=== PATIENT | female | born 1985 | race Caucasian/White ===

== ENCOUNTER 2019-11-12 16:28 | Emergency (ER) | payer BC, SELFPAY ==
--- NOTE | ~2019-11-12 | XR_ITS ---
EXAMINATION: XR chest 1V portable DATE: 11/12/2019 18:39 INDICATION: Shortness of breath. COVID positive. TECHNIQUE: A single frontal view of the chest was obtained. COMPARISON: CT abdomen and pelvis 04/25/2008 FINDINGS: The chest demonstrates clear lungs without pneumonia, pleural effusion, or pneumothorax. Th e heart size is normal. IMPRESSION: 1. No acute cardiopulmonary disease. Reviewed, dictated and finalized at location A.
[2019-11-12 16:55] VITALS: BP 141/88; PULSE 89; RESP 11; TEMP 36.6; O2SAT 100
--- NOTE | 2019-11-12 17:29 | ECG_ITS ---
Measurements Intervals [place] Rate: 95 P: 6 ID: 140 QRS: 16 QRSD: 85 T: 28 QT: 327 QTc: 411 Interpretive Statements SINUS RHYTHM VOLTAGE CRITERIA FOR LVH BASELINE ARTIFACT- I, II, AVR, V1 BORDERLINE ECG Electronically Signed On 11-13-2019 7:03:34 CDT by Edwin Phillips D.O.
[2019-11-12 17:50] LABS: Basophils Percent Auto 0.2 % (0.2-1.2); Eosinophils Absolute Auto 0.1 K/mm3 (0-0.3); Eosinophils Percent Auto 2.5 % (0-4.4); Hematocrit 38.6 % (37.0-47.0); Hemoglobin 13.6 g/dL (12.0-15.0); Immature Granulocyte Absolute 0.02 K/mm3 (0.00-0.031); Immature Granulocyte Percent A 0.4 % (0-0.5); Lymphocytes Absolute Auto 1.49 K/mm3 (0.9-3.2); Lymphocytes Percent Auto 26.8 % (18.3-44.2); Mean Corpuscular HGB Conc 35.2 g/dl (32-36); Mean Corpuscular Hemoglobin 31.1 pg (26-34); Mean Corpuscular Volume 88.1 fl (80-100); Mean Platelet Volume 9.5 fl (7.4-10.4); Monocytes Absolute Auto 0.4 K/mm3 (0.1-0.6); Monocytes Percent Auto 6.5 % (2.6-8.5); Neutrophils Absolute Auto 3.6 K/mm3 (1.3-6.7); Neutrophils Percent Auto 63.6 % (45.5-73.1); Platelet Count Result 281 k/mm3 (150-375); Red Blood Count 4.38 M/mm3 (4.2-5.4); White Blood Count 5.6 K/mm3 (4.5-10.0)
[2019-11-12 18:02] LABS: Alanine Aminotransferase 16 U/L (4-35); Albumin Level 3.8 g/dL (3.5-5.1); Alkaline Phosphatase 83 U/L (38-126); Aspartate Amino Transferase 19 U/L (14-36); Bilirubin,Total < 0.1 mg/dL (0.2-1.3); Blood Urea Nitrogen 8 mg/dL (7-17); Calcium 8.9 mg/dL (8.4-10.2); Carbon Dioxide 23 mmol/L (22-30); Chloride 104 mmol/L (98-107); Estimated CRCL calculation 184 ml/min; Estimated Glomerular Filt Rate > 60; Glucose 102 mg/dL (65-105); Potassium 3.4 mmol/L (3.4-5.0); Sodium 135 mmol/L (137-145)
[2019-11-12 18:12] LABS: Alveolar/Arterial O2 Gradient 25.1 mmHg; Base Excess ABG -2.3 mEq/l (+/-2.0); Device ROOM AIR; Fractional Inspired Oxygen 21 %; HCO3 ABG 20.2 mEq/l (22.0-26.0); Modified Allen's Test Pass; Oxygen Content ABG 18.7 %vol (16.0-22.0); Oxygen Saturation ABG 97.4 % (95.0-100.0); Oxyhemoglobin 96.2 % THb (90.0-100.0); PCO2 ABG 28.9 mmHg (35.0-45.0); PO2 FiO2 Ratio Arterial Blood 4.29 %; Site Drawn RIGHT RADIAL; Total Hemoglobin 13.8 g/dL (12.0-18.0); pH ABG 7.463 (7.350-7.450)
[2019-11-12 19:13] VITALS: BP 130/93; PULSE 100; RESP 18; TEMP 36.9; O2SAT 100
--- NOTE | 2019-11-12 19:59 | ED.SOB ---
HPI - SOB/Dyspnea General Chief Complaint: Shortness of Breath/Dyspnea Stated Complaint: covid +, 17 wks , sob Time Seen by Provider: 11/12/19 17:26 Source: patient Mode of arrival: ambulatory Limitations: no limitations History of Present Illness HPI Narrative: 34-year-old female who is in her second trimester Approximately 17 or 18 weeks She notes that due to the she always has a little bit of fatigue and shortness of breath but it has been getting a little bit worse for the last day or 2 She has a mild nonproductive cough She has no fever She had a positive COVID swab done elsewhere several days ago MD elicited complaint: shortness of breath Context: recent illness Known history of: other Related Data Home Medications Medication Instructions Recorded Confirmed vits 75-iron 28 mg-folic pkg PO 09/01/19 acid 800 mcg-omega-3 oral combo pack Allergies Allergy/AdvReac Type Severity Reaction Status Date / Time Penicillins Allergy Unknown Unknown Verified 11/12/19 16:30 Review of Systems Review of Systems: All systems reviewed & are unremarkable except as noted in HPI and below Constitutional: Constitutional: Reports fatigue Eyes: Eyes: Denies change in vision, Denies loss of vision and Denies other visual disturbances ENT: Denies nasal congestion Cardiovascular: Cardiovascular: Denies chest pain Respiratory: Respiratory: Denies dyspnea Gastrointestinal: Gastrointestinal: Denies nausea and Denies vomiting Genitourinary: Genitourinary: Reports nocturia Musculoskeletal: Musculoskeletal: Denies abnormal gait, Denies deformity, Denies joint swelling, Denies muscle weakness and Denies numbness Integumentary/Breasts: Skin/Breast: Denies rash, Denies unusual bruising and Denies wounds Neurologic: Denies dizziness and Denies weakness Psychiatric: Psychiatric: Reports no additional psychiatric complaints Endocrine: Endocrine: Denies fatigue and Denies palpitations Hematologic/Lymphatic: Hematologic/Lymphatic: Denies easy bleeding and Denies easy bruising Allergic/Immunologic: Allergic/Immunologic: Denies wheezing PMFSH Social History Social History Smoking status: Never smoker Second hand tobacco smoke exposure: No Alcohol intake: never Exam Const: General: healthy appearing, no acute distress and well developed Nutritional Appearance: well nourished Orientation/consciousness: patient oriented x3 (alert) and Other orientation findings (Alert) Limitations: no limitations HENMT: Head: normocephalic and atraumatic Ears: external ears normal General nose exam: No nasal discharge present Face and sinus: face symmetric Mouth: Yes tongue normal and Yes moist mucous membranes Throat: other (No exudate, no erythema) Eyes: Conjunctivae: conjunctivae normal Sclera: sclerae normal EOM: EOMs intact bilaterally Neck: Neck: full ROM and supple Thyroid: thyroid normal Resp: Effort & Inspection: normal respiratory effort Auscultation: clear to auscultation bilaterally, no rales, no rhonchi, no wheezes and other (breath sounds equal) Cardio: Rate: regular rate Rhythm: regular rhythm Heart sounds: no gallops and no murmurs GI: Inspection: non-distended GI Palp: No abdominal tenderness and Yes Soft to palpation Auscultation: other (bowel sounds present) Other: Gravid abdomen Back/Spine/Pelvis: Thoracic/Lumbar Spine: thoracic and lumbar spine normal to inspection Skin: General skin exam: normal color and no rashes or lesions noted Rashes: no rashes Neuro: General: patient oriented x3 (alert) and moves all extremities Cranial nerves: Yes facial symmetry Speech: normal speech Motor exam (neuro): Motor abnormalities not present Extrem: General: normal to inspection and full ROM Psych: Affect: normal affect Course Vital Signs Vital signs: Vital Signs Temperature 36.6 C 11/12/19
[2019-11-12 20:14] VITALS: BP 114/74; PULSE 88; RESP 14; TEMP 36.8; O2SAT 100
[2019-11-13 13:59] LABS: SARS-CoV-2 RNA PCR Positive
[2019-11-18 14:09] LABS: Procalcitonin <0.10 ng/mL (<0.10)
== END 2019-11-12 20:15 | disposition home or self-care (01) ==
PROVIDERS: Emergency Provider Emergency Medicine
DX: O98.512 Other viral diseases complicating pregnancy, second trimester (principal); U07.1 COVID-19; Z3A.00 Weeks of gestation of pregnancy not specified; R94.31 Abnormal electrocardiogram [ECG] [EKG]
CPT/HCPCS: 36415; 36600; 71045; 80053; 82728; 82805; 84145; 85025; 87635; 93005; 99283; C9803; U0003

== ENCOUNTER 2020-01-03 06:53 | Outpatient (CLI) | payer BC, SELFPAY ==
[2020-01-03 08:51] LABS: Basophils Percent Auto 0.3 % (0.2-1.2); Eosinophils Absolute Auto 0.4 K/mm3 (0-0.3); Eosinophils Percent Auto 4.1 % (0-4.4); Hematocrit 35.4 % (37.0-47.0); Immature Granulocyte Absolute 0.05 K/mm3 (0.00-0.031); Immature Granulocyte Percent A 0.6 % (0-0.5); Lymphocytes Absolute Auto 1.44 K/mm3 (0.9-3.2); Lymphocytes Percent Auto 15.9 % (18.3-44.2); Mean Corpuscular HGB Conc 33.9 g/dl (32-36); Mean Corpuscular Hemoglobin 30.8 pg (26-34); Monocytes Absolute Auto 0.6 K/mm3 (0.1-0.6); Monocytes Percent Auto 6.9 % (2.6-8.5); Neutrophils Absolute Auto 6.6 K/mm3 (1.3-6.7); Neutrophils Percent Auto 72.2 % (45.5-73.1); Platelet Count Result 293 k/mm3 (150-375); Red Blood Count 3.89 M/mm3 (4.2-5.4); White Blood Count 9.1 K/mm3 (4.5-10.0)
[2020-01-03 09:08] LABS: Alanine Aminotransferase 10 U/L (4-35); Albumin Level 3.3 g/dL (3.5-5.1); Alkaline Phosphatase 93 U/L (38-126); Anion Gap 6 mmol/L (8-16); Aspartate Amino Transferase 14 U/L (14-36); Bilirubin,Total 0.2 mg/dL (0.2-1.3); Blood Urea Nitrogen 7 mg/dL (7-17); Calcium 8.6 mg/dL (8.4-10.2); Carbon Dioxide 23 mmol/L (22-30); Chloride 106 mmol/L (98-107); Estimated Glomerular Filt Rate > 60; Glucose 119 mg/dL (65-105); Glucose 1 Hour PP 50gm Dose 118 mg/dL; Lactate Dehydrogenase 268 U/L (313-618); Potassium 3.5 mmol/L (3.4-5.0); Sodium 135 mmol/L (137-145); Uric Acid 3.9 mg/dL (2.5-7.5)
[2020-01-03 09:31] LABS: Thyroid Stimulating Hormone 0.888 uIU/mL (0.465-4.680)
[2020-01-03 13:14] LABS: Total Volume 24 Hour Urine 750 ml
[2020-01-03 13:15] LABS: Total Volume 24 Hour Urine 750 ml
[2020-01-03 13:22] LABS: Total Protein Urine 24 Hr 67 MG/DAY (28-141); Total Protein Urine Random 9 mg/dL
[2020-01-03 13:55] LABS: Creatinine 24 Hour Urine 1.2 gm/24 (0.8-1.8); Creatinine Urine 161.2 mg/dL
== END 2020-01-03 06:54 | disposition home or self-care (01) ==
PROVIDERS: PCP Family Medicine; Visit Provider Student in an Organized Health Care Education/Training Program
DX: Z34.90 Encounter for supervision of normal pregnancy, unspecified, unspecified trimester (principal)
CPT/HCPCS: 36415; 80053; 81050; 82570; 82947; 83615; 84156; 84443; 84550; 85025; 86850; 86900; 86901

== ENCOUNTER 2020-01-29 09:23 | Outpatient (CLI) | payer BC, SELFPAY ==
--- NOTE | 2020-01-29 09:34 | ECG_ITS ---
Measurements Intervals [place] Rate: 78 P: 12 VT: 142 QRS: 35 QRSD: 85 T: 34 QT: 350 QTc: 399 Interpretive Statements SINUS RHYTHM WITH SINUS ARRHYTHMIA NORMAL ECG Electronically Signed On 01-29-2020 10:03:30 CDT by Edwin Phillips D.O.
== END 2020-01-29 09:24 | disposition home or self-care (01) ==
PROVIDERS: PCP Family Medicine; Visit Provider Student in an Organized Health Care Education/Training Program
DX: R00.0 Tachycardia, unspecified (principal)
CPT/HCPCS: 93005

== ENCOUNTER 2020-03-11 09:00 | Outpatient (CLI) | payer BC, SELFPAY ==
[2020-03-11 09:45] LABS: Basophils Percent Auto 0.3 % (0.2-1.2); Eosinophils Absolute Auto 0.2 K/mm3 (0-0.3); Eosinophils Percent Auto 2.5 % (0-4.4); Hematocrit 34.4 % (37.0-47.0); Hemoglobin 11.8 g/dL (12.0-15.0); Immature Granulocyte Absolute 0.05 K/mm3 (0.00-0.031); Immature Granulocyte Percent A 0.6 % (0-0.5); Lymphocytes Absolute Auto 1.57 K/mm3 (0.9-3.2); Mean Corpuscular HGB Conc 34.3 g/dl (32-36); Mean Corpuscular Hemoglobin 30.3 pg (26-34); Mean Corpuscular Volume 88.4 fl (80-100); Mean Platelet Volume 9.6 fl (7.4-10.4); Monocytes Absolute Auto 0.6 K/mm3 (0.1-0.6); Monocytes Percent Auto 6.5 % (2.6-8.5); Neutrophils Absolute Auto 6.3 K/mm3 (1.3-6.7); Neutrophils Percent Auto 72.1 % (45.5-73.1); Platelet Count Result 292 k/mm3 (150-375); Red Blood Count 3.89 M/mm3 (4.2-5.4); Red Cell Distribution Width 13.1 % (11.5-14.5); White Blood Count 8.7 K/mm3 (4.5-10.0)
[2020-03-11 12:17] LABS: Rapid Plasma Reagin Non-Reactive (NonReactive)
[2020-03-11 18:56] LABS: HIV 1/2 Ab P24 Ag Result Negative (Negative)
== END 2020-03-11 09:01 | disposition home or self-care (01) ==
PROVIDERS: PCP Family Medicine; Visit Provider Obstetrics & Gynecology
DX: Z34.83 Encounter for supervision of other normal pregnancy, third trimester (principal); Z3A.00 Weeks of gestation of pregnancy not specified
CPT/HCPCS: 36415; 85025; 86592; 86703; G0432

== ENCOUNTER 2020-04-05 11:23 | Inpatient (IN) | payer BC, SELFPAY ==
[2020-04-05] VITALS (142 sets, daily range): BP systolic 111–152; BP diastolic 42–102; PULSE 63–155; RESP 16; TEMP 36.7–36.9; O2SAT 94–100; BMI 32.3
--- NOTE | 2020-04-05 11:23 | LDADM ---
This patient, Leon Carmona, was admitted to Labor/Delivery/Recovery 107 on 04/05/20 at 11:23. Plans for labor, pain management and were discussed with patient. Patient/family oriented to hospital policies and general routines including ID bracelet, bed and alarms, visiting hours, pain management, procedures, bathroom and other care routines, personal items, smoking policy, room service/diet and guest tray routines, infant security routines, and visiting hours. Patient/Family are encouraged to report perceived risks to care and to ask questions if they do not understand what they are told or what they should do. See OBIX for further documentation.
[2020-04-05 12:30] LABS: Basophils Percent Auto 0.2 % (0.2-1.2); Eosinophils Absolute Auto 0.1 K/mm3 (0-0.3); Eosinophils Percent Auto 0.9 % (0-4.4); Hematocrit 35.7 % (37.0-47.0); Hemoglobin 12.2 g/dL (12.0-15.0); Immature Granulocyte Absolute 0.03 K/mm3 (0.00-0.031); Immature Granulocyte Percent A 0.4 % (0-0.5); Lymphocytes Absolute Auto 1.63 K/mm3 (0.9-3.2); Lymphocytes Percent Auto 19.1 % (18.3-44.2); Mean Corpuscular HGB Conc 34.2 g/dl (32-36); Mean Corpuscular Hemoglobin 30.4 pg (26-34); Mean Platelet Volume 9.9 fl (7.4-10.4); Monocytes Absolute Auto 0.7 K/mm3 (0.1-0.6); Monocytes Percent Auto 8.2 % (2.6-8.5); Neutrophils Absolute Auto 6.1 K/mm3 (1.3-6.7); Neutrophils Percent Auto 71.2 % (45.5-73.1); Platelet Count Result 290 k/mm3 (150-375); Red Blood Count 4.01 M/mm3 (4.2-5.4); Red Cell Distribution Width 13.3 % (11.5-14.5); White Blood Count 8.5 K/mm3 (4.5-10.0)
[2020-04-05] MEDS: LACTATED RINGERS 1,000 ML 125 ML IV CONT ×2 (12:36→12:37)
--- NOTE | 2020-04-05 13:11 | WPDANESEPP ---
Anes - Eval Pre Procedure Procedure: Labor Epidural Date/Time: 04/05/20 13:11 Surgeon: German Preop Diagnosis: Labor Pain Pre Op Diagnosis: contractions Patient Data Age: 34 Gender: F Height: Weight: Last Vital Signs Pulse 106 H 04/05/20 13:09 BP 125/53 L 04/05/20 13:09 Pulse Ox 100 04/05/20 13:10 Allergies Allergy/AdvReac Type Severity Reaction Status Date / Time Penicillins Allergy Intermediate Hives Verified 04/03/20 13:39 Home Medications Medication Instructions Recorded Confirmed Type vits 75-iron 28 mg-folic pkg PO 09/01/19 03/30/20 History acid 800 mcg-omega-3 oral combo pack cholecalciferol (vitamin D3) 50 50 mcg PO DAILY #90 cap 01/01/20 03/30/20 Rx mcg (2,000 unit) capsule Laboratory Tests 04/05/20 04/05/20 12:17 12:18 WBC 8.5 K/mm3 K/mm3 (4.5-10.0) RBC 4.01 M/mm3 L M/mm3 (4.2-5.4) Hgb 12.2 g/dL g/dL (12.0-15.0) Hct 35.7 % L % (37.0-47.0) MCV 89.0 fl fl (80-100) MCH 30.4 pg pg (26-34) MCHC 34.2 g/dl g/dl (32-36) RDW 13.3 % % (11.5-14.5) Plt Count 290 k/mm3 k/mm3 (150-375) MPV 9.9 fl fl (7.4-10.4) Immature Gran % (Auto) 0.4 % % (0-0.5) Neut % (Auto) 71.2 % % (45.5-73.1) Lymph % (Auto) 19.1 % % (18.3-44.2) [place] % (Auto) 8.2 % % (2.6-8.5) Eos % (Auto) 0.9 % % (0-4.4) Baso % (Auto) 0.2 % % (0.2-1.2) Lymph # (Auto) 1.63 K/mm3 K/mm3 (0.9-3.2) [place] # (Auto) 0.7 K/mm3 H K/mm3 (0.1-0.6) Eos # (Auto) 0.1 K/mm3 K/mm3 (0-0.3) Baso # (Auto) 0.0 K/mm3 K/mm3 (0.0-0.1) Abs Immat Gran (auto) 0.03 K/mm3 K/mm3 (0.00-0.031) Absolute Neuts (auto) 6.1 K/mm3 K/mm3 (1.3-6.7) Absolute Nucleated RBC 0.0 K/mm3 K/mm3 (0.0-0.012) Nucleated RBC % 0.0 % % (0.0-0.2) RPR Pending : gestational age (CRISTAL 04/19/20) Patient hx anesthesia problems: none Family hx anesthesia problems: none PMFSH Past Medical History Medical History Anxiety Asthma Depression Encounter for supervision of normal first , second trimester Vaginal delivery x 3 Family History Family History Father Family history of elevated blood lipids Patient's father is Family history of coronary artery disease Hypertension Acute myocardial infarction Grandparent Family history of malignant neoplasm of bone Diabetes mellitus Depression Acute myocardial infarction Mother Depression Patient's mother is Family history of pancreatic cancer Social History Social History Smoking status: Never smoker Second hand tobacco smoke exposure: No Alcohol intake: never Substance use: never Spiritual care concerns: No Exam Day of Procedure 04/05/20 13:11 Patient weight: overweight Heart: regular rate and rhythm Lungs: normal air movement Airway: Mallampati scale class II Neurological: alert and oriented
[2020-04-05] MEDS: OXYTOCIN 30 UNITS/NS 500 ML 30 UNITS/500 ML BAG IV CONT (16:04)
[2020-04-05] MEDS: ONDANSETRON INJ 4 MG/2 ML VIAL IV PUSH (16:41)
--- NOTE | 2020-04-05 20:11 | PM.OBPRVD ---
OB - Delivery Note Procedure Delivery date: 04/05/20 Procedure: Spontaneous vaginal delivery Intrapartal events: None Delivery augmentation: rupture of membranes and pitocin Delivery monitor: external FHT and internal uterine Route of delivery: Laceration Description: None Specimen: No Quantitative Blood Loss (ml): 200 Anesthesia type: Epidural Disposition: floor Narrative: Patient was admitted in active labor. She had epidural. She subsequently had AROM clear cervix was 4. Contractions decreased and cervix unchanged and was started on Pitocin augmentation. She progressed to complete. She delivered male infant vigorously crying and placed on maternal abdomen. Delayed cord clamping for 40 seconds when cord apulsatile. Light meconium stained amniotic noted after delivery. Placenta delivered spontaneously and intact. No lacerations. Patient tolerated procedure well. [place] Baby Date of : 04/05/20 Time of : 19:44 Weeks of gestation at delivery: 38 gender: Female Weight (pounds): 7 presentation: vertex position: Right Occiput Anterior Placenta delivery description: Spontaneous cord vessel description: 3 Vessels, Around Extremity x1 and Delayed Cord Clamping score one minute: 9 score five minutes: 9
--- NOTE | 2020-04-05 20:16 | PM.IMHP ---
H&P: HPI History of Present Illness Date/Time: 04/05/20 20:16 Chief complaint: contractions Narrative: Leon Carmona is a 34 year old female at 38 weeks by LMP 07/14/19 with an EDC 04/19/20 consistent with 8 week ultrasound. She presented to labor and delivery with regular contractions moderate and cervix was 3 cm which had changed from last vist which was 1 and she was having regular contractions. PNC uncomplicated. Labs reviewed. GBS neg. Review of Systems Review of Systems: All systems reviewed & are unremarkable except as noted in HPI and below Constitutional: Constitutional: Reports no additional constitutional complaints and Denies headache(s) Eyes: Eyes: Denies spots in vision ENT: Reports system reviewed and no additional complaints, except as documented and Denies headache(s) Cardiovascular: Cardiovascular: Denies chest pain and Denies dyspnea Respiratory: Respiratory: Denies dyspnea Gastrointestinal: Gastrointestinal: Reports no additional gastrointestinal complaints Genitourinary: Genitourinary: Reports amenorrhea Musculoskeletal: Musculoskeletal: Reports no additional musculoskeletal complaints Integumentary/Breasts: Skin/Breast: Denies breast mass and Denies rash Neurologic: Denies headache(s) Psychiatric: Psychiatric: Reports no additional psychiatric complaints PMFSH Past Medical History Medical History (Updated 04/06/20 @ 12:22 by Ulices Porter MD) Anxiety Asthma Depression Encounter for supervision of normal first , second trimester Vaginal delivery x 3 Family History Family History Father Family history of elevated blood lipids Patient's father is Family history of coronary artery disease Hypertension Acute myocardial infarction Grandparent Family history of malignant neoplasm of bone Diabetes mellitus Depression Acute myocardial infarction Mother Depression Patient's mother is Family history of pancreatic cancer Social History Social History Smoking status: Never smoker Second hand tobacco smoke exposure: No Alcohol intake: never Substance use: never Spiritual care concerns: No Meds Home Medications and Allergies Home Medications Medication Instructions Recorded Confirmed Type vits 75-iron 28 mg-folic 1 pkg PO WEEKLY 09/01/19 04/05/20 History acid 800 mcg-omega-3 oral combo pack cholecalciferol (vitamin D3) 50 50 mcg PO DAILY #90 cap 01/01/20 04/05/20 Rx mcg (2,000 unit) capsule Allergies Allergy/AdvReac Type Severity Reaction Status Date / Time Penicillins Allergy Intermediate Hives Verified 04/05/20 13:40 Vital Signs Vital Signs - 24 hr 04/05/20 11:31 04/05/20 12:35 04/05/20 12:36 Temperature 98.4 F Pulse Rate 85 Blood Pressure 138/85 Pulse Oximetry 100 04/05/20 12:40 04/05/20 12:43 04/05/20 12:45 Temperature Pulse Rate 93 Blood Pressure 152/93 H Pulse Oximetry 100 100 04/05/20 12:50 04/05/20 12:53 04/05/20 12:55 Temperature Pulse Rate 93 99 Blood Pressure 132/78 144/72 H Pulse Oximetry 100 100 04/05/20 12:56 04/05/20 12:58 04/05/20 13:00 Temperature 98.4 F Pulse Rate 124 H 126 H 123 H Blood Pressure 128/77 123/63 126/102 H Pulse Oximetry 100 04/05/20 13:01 04/05/20 13:03 04/05/20 13:05 Temperature Pulse Rate 139 H 155 H Blood Pressure 114/87 136/80 Pulse Oximetry 100 04/05/20 13:06 04/05/20 13:09 04/05/20 13:10 Temperature Pulse Rate 116 H 106 H Blood Pressure 134/69 125/53 L Pulse Oximetry 100 04/05/20 13:12 04/05/20 13:15 04/05/20 13:18 Temperature Pulse Rate 99 97 63 Blood Pressure 111/42 L 114/53 L 111/99 H Pulse Oximetry 100 04/05/20 13:20 04/05/20 13:21 04/05/20 13:24 Temperature Pulse Rate 98 92 Blood Pressure 128/62 111/4
[2020-04-05] MEDS: OXYTOCIN 30 UNITS/NS 500 ML 30 UNITS/500 ML BAG 125 UNITS IV CONT (20:23)
[2020-04-05] MEDS: BENZOCAINE 20% AER SPR (*SP) 56 GM CAN 1 SPRAY TOPICAL (21:15)
[2020-04-05] MEDS: WITCH HAZEL 40 PADS 1 PAD TOPICAL ×2 (21:15→22:53)
--- NOTE | 2020-04-05 23:14 | OBPPTRN ---
Patient transferred to post room #286 via wheelchair. Support person present. Oriented to unit, room, information board, rooming in, admission packet and security measures. Patient verbalizes understanding.
[2020-04-06] MEDS: ACETAMINOPHEN 325 MG TABLET 650 MG PO ×3 (02:53→23:45)
[2020-04-06 06:14] LABS: Hematocrit 32.7 % (37.0-47.0); Hemoglobin 11.1 g/dL (12.0-15.0)
[2020-04-06] MEDS: DOCUSATE SODIUM 100 MG CAPSULE PO (07:39)
[2020-04-06] MEDS: MULTIVIT/MIN/PREN/FOL AC/IRON TABLET 1 TAB PO (07:39)
[2020-04-06] MEDS: IBUPROFEN 600 MG TABLET PO ×2 (07:40→18:15)
[2020-04-06 07:56] LABS: Rapid Plasma Reagin Non-Reactive (NonReactive)
[2020-04-06 08:10] VITALS: BP 128/74; PULSE 83; RESP 18; TEMP 36.9; O2SAT 93
--- NOTE | 2020-04-06 11:00 | PC.NURSE ---
Consulted with patient, reviewed feeding cues, frequencies, duration of feedings, feeding elimination flow sheet, and signs of adequate intake. Demonstrated stimulation techniques to wake for feeding. Assisted with to breast. Reviewed positioning/alignment, holding breast and asymmetrical latch on. was able to latch correctly. Infant nursed eagerly, with steady draws and frequent swallowing noted. Reviewed signs of a correct latch, effective nursing and suck swallow ratio. was able to maintain latch without discomfort to mother. Nipple care reviewed. Instructed mother to call out for RN assistance if she is unable to latch for feeding or she has discomfort with nursing. Instructed feeding should be initiated three hours from start of last feeding or if feeding cues are noted before. Mother voiced understanding of information shared.
--- NOTE | 2020-04-06 12:24 | PM.OBPNVD ---
OB - PN: Subj Subjective Date/time seen: 04/05/20 1300 FHT 125-130. Cat 1. Irregular contractions. She received epidural. Cervix /-2/ AROM clear. OB - PN: Obj Data Labs CBC & Chem 7: 04/06/20 05:33 Labs: Laboratory Results - last 24 hr 04/05/20 04/05/20 04/05/20 12:17 12:17 12:18 WBC 8.5 RBC 4.01 L Hgb 12.2 Hct 35.7 L MCV 89.0 MCH 30.4 MCHC 34.2 RDW 13.3 Plt Count 290 MPV 9.9 Immature Gran % (Auto) 0.4 Neut % (Auto) 71.2 Lymph % (Auto) 19.1 [place] % (Auto) 8.2 Eos % (Auto) 0.9 Baso % (Auto) 0.2 Lymph # (Auto) 1.63 [place] # (Auto) 0.7 H Eos # (Auto) 0.1 Baso # (Auto) 0.0 Abs Immat Gran (auto) 0.03 Absolute Neuts (auto) 6.1 Absolute Nucleated RBC 0.0 Nucleated RBC % 0.0 RPR Non-reactive Blood Type O Positive Antibody Screen Negative 04/06/20 05:33 WBC RBC Hgb 11.1 L Hct 32.7 L MCV MCH MCHC RDW Plt Count MPV Immature Gran % (Auto) Neut % (Auto) Lymph % (Auto) [place] % (Auto) Eos % (Auto) Baso % (Auto) Lymph # (Auto) [place] # (Auto) Eos # (Auto) Baso # (Auto) Abs Immat Gran (auto) Absolute Neuts (auto) Absolute Nucleated RBC Nucleated RBC % RPR Blood Type Antibody Screen OB - PN A/P Time Spent With Patient Time: Total time spent is greater than 50% in coordination of care (as documented) at patient's floor/unit and/or counseling patient:
--- NOTE | 2020-04-06 12:25 | PM.OBPNVD ---
OB - PN: Subj Subjective Date/time seen: 04/02/20 1600 FHT 130 Cat 1. Irregular ctx. Will start Pitocin augmentation. OB - PN: Obj Data Labs CBC & Chem 7: 04/06/20 05:33 Labs: Laboratory Results - last 24 hr 04/05/20 04/05/20 04/05/20 12:17 12:17 12:18 WBC 8.5 RBC 4.01 L Hgb 12.2 Hct 35.7 L MCV 89.0 MCH 30.4 MCHC 34.2 RDW 13.3 Plt Count 290 MPV 9.9 Immature Gran % (Auto) 0.4 Neut % (Auto) 71.2 Lymph % (Auto) 19.1 [place] % (Auto) 8.2 Eos % (Auto) 0.9 Baso % (Auto) 0.2 Lymph # (Auto) 1.63 [place] # (Auto) 0.7 H Eos # (Auto) 0.1 Baso # (Auto) 0.0 Abs Immat Gran (auto) 0.03 Absolute Neuts (auto) 6.1 Absolute Nucleated RBC 0.0 Nucleated RBC % 0.0 RPR Non-reactive Blood Type O Positive Antibody Screen Negative 04/06/20 05:33 WBC RBC Hgb 11.1 L Hct 32.7 L MCV MCH MCHC RDW Plt Count MPV Immature Gran % (Auto) Neut % (Auto) Lymph % (Auto) [place] % (Auto) Eos % (Auto) Baso % (Auto) Lymph # (Auto) [place] # (Auto) Eos # (Auto) Baso # (Auto) Abs Immat Gran (auto) Absolute Neuts (auto) Absolute Nucleated RBC Nucleated RBC % RPR Blood Type Antibody Screen OB - PN A/P Time Spent With Patient Time: Total time spent is greater than 50% in coordination of care (as documented) at patient's floor/unit and/or counseling patient:
--- NOTE | 2020-04-06 12:32 | PM.OBPNVD ---
OB - PN: Subj Subjective Date/time seen: 04/06/20 12:32 Patient comments: pain well controlled, tolerating diet and other (Decreasing lochia.) baby status: doing well and nursing well [place] feeding status: exclusively breast feeding OB - PN: Obj Data Labs CBC & Chem 7: 04/06/20 05:33 Labs: Laboratory Results - last 24 hr 04/05/20 04/05/20 04/05/20 12:17 12:17 12:18 WBC 8.5 RBC 4.01 L Hgb 12.2 Hct 35.7 L MCV 89.0 MCH 30.4 MCHC 34.2 RDW 13.3 Plt Count 290 MPV 9.9 Immature Gran % (Auto) 0.4 Neut % (Auto) 71.2 Lymph % (Auto) 19.1 [place] % (Auto) 8.2 Eos % (Auto) 0.9 Baso % (Auto) 0.2 Lymph # (Auto) 1.63 [place] # (Auto) 0.7 H Eos # (Auto) 0.1 Baso # (Auto) 0.0 Abs Immat Gran (auto) 0.03 Absolute Neuts (auto) 6.1 Absolute Nucleated RBC 0.0 Nucleated RBC % 0.0 RPR Non-reactive Blood Type O Positive Antibody Screen Negative 04/06/20 05:33 WBC RBC Hgb 11.1 L Hct 32.7 L MCV MCH MCHC RDW Plt Count MPV Immature Gran % (Auto) Neut % (Auto) Lymph % (Auto) [place] % (Auto) Eos % (Auto) Baso % (Auto) Lymph # (Auto) [place] # (Auto) Eos # (Auto) Baso # (Auto) Abs Immat Gran (auto) Absolute Neuts (auto) Absolute Nucleated RBC Nucleated RBC % RPR Blood Type Antibody Screen OB - PN A/P Plan day: 1 Plan: routine care Comments: Patient doing well. Time Spent With Patient Time: Total time spent is greater than 50% in coordination of care (as documented) at patient's floor/unit and/or counseling patient: Exam Psych: Affect: normal affect Other: Abd: fundus firm below umbilicus, nontender Perineum: healing Ext: nontender
[2020-04-06 20:30] VITALS: BP 114/67; PULSE 82; RESP 16; TEMP 36.6; O2SAT 100
[2020-04-07] MEDS: IBUPROFEN 600 MG TABLET PO (04:00)
--- NOTE | 2020-04-07 07:40 | P.PNOB_ITS ---
OB - PN: Subj Subjective Date/time seen: 04/07/20 07:40 Patient comments: pain well controlled, tolerating diet and other (Decreasing lochia.) baby status: doing well and nursing well [place] feeding status: exclusively breast feeding OB - PN: Obj Data Labs CBC & Chem 7: 04/06/20 05:33 Labs: Laboratory Results - last 24 hr 04/05/20 12:18 RPR Non-reactive OB - PN A/P Plan day: 2 Plan: discharge home and other Comments: Patient doing well. Follow up 4-6 weeks. Discharge instructions provided. Time Spent With Patient Time: Total time spent is greater than 50% in coordination of care (as documented) at patient's floor/unit and/or counseling patient: Time with patient: less than 15 minutes Exam Resp: Effort & Inspection: normal respiratory effort Psych: Affect: normal affect Other: Abd: fundus firm below umbilicus, nontender Ext: nontender
[2020-04-07 07:45] VITALS: BP 125/80; PULSE 82; RESP 18; TEMP 36.6; O2SAT 100
--- NOTE | 2020-04-07 08:08 | PM.DS ---
DS: Admitting Diagnosis Admitting Diagnosis Admitting Diagnosis: Active labor DS: Discharge Diagnosis Discharge Diagnosis (1) Active labor: Status: Acute Assessment and Plan: Active labor. Intrauterine delivered. DS: Summary Time Spent with Patient Time attestation: Total time spent providing and/or coordinating discharge services: Exam Const: General: comfortable and no acute distress Eyes: General: appearance normal, both eyes and all related structures Resp: Effort & Inspection: normal respiratory effort GI: Inspection: normal to inspection Other: Nontender, uterus firm -1Umb Neuro: General: patient oriented x3 Extrem: General: normal to inspection (nontender) Psych: Appearance: grossly normal Discharge Plan Discharge Attending physician on discharge: Ulices Porter Discharging Clinician: Ulices Porter Anticipated Discharge Date/Time: 04/07/20 08:11 Patient Disposition: Home, Self-Care Activity: may shower and pelvic rest Diet: regular Discharge Instructions: Stable condition. Routine post vaginal delivery instructions. Call to make follow up appointment for four weeks. Take daily vitamin. May take over the counter Tylenol or Ibuprofen for pain. Patient Instructions: Antibiotic Form Stand Alone Forms: General Discharge Information Follow-up/Referrals: Ulices Porter MD [Physician] - 4 Weeks Discharge Medications: Continued One A Day Women's DHA 28 mg iron- 800 mcg combo pack 1 pkg PO WEEKLY RF: 0 cholecalciferol (vitamin D3) 50 mcg (2,000 unit) capsule 50 mcg PO DAILY Qty: 90 RF: 0 Date of admission: 04/05/20 11:23 Primary Care Provider: Carlos Rand Admitting Provider: Ulices Porter Attending physician on admission: Ulices Porter
[2020-04-07 08:30] VITALS: PULSE 82; RESP 18; O2SAT 100
--- NOTE | 2020-04-07 08:45 | PC.NURSE ---
Observed mother is able to independently latch with appropriate positioning/alignment. This is mother's 4th child to breastfeed. She denies any nipple discomfort, is feeding as required and waking to feed if needed. has had at least 8 effective feedings in the past 24 hours, and is currently meeting outcomes for weight, output, jaundice and feeding frequencies. Mother states she feels confident to continue effective at home. Reviewed transition to breast milk, signs of adequate intake, and engorgement/relief. Instructed to call ICP if intake/output less than required. Reviewed regular medications mother is taking. Information provided per [place]. Reviewed community resources on the [facility] website and in the Mom/Baby guide. Information on outpatient services provided. Mother has no further questions at this time.
[2020-04-07] MEDS: MULTIVIT/MIN/PREN/FOL AC/IRON TABLET 1 TAB PO (08:56)
[2020-04-07] MEDS: DOCUSATE SODIUM 100 MG CAPSULE PO (08:56)
--- NOTE | 2020-04-07 09:23 | PC.NURSE ---
Patient was given the opportunity to view the discharge video Mother & Baby Care, The First Two Weeks and to ask questions. Patient declined viewing the video and has been given the mother/baby guide for home reference.
[2020-04-08 08:13] VITALS: BP 131/87; PULSE 86; RESP 20; TEMP 36.8; O2SAT 100
== END 2020-04-07 10:55 | disposition home or self-care (01) | DRG 807 ==
LOC: ANHLDR 12:04 → ANHNUR2 23:26 → ANHOB2 23:28
PROVIDERS: Admitting Provider Obstetrics & Gynecology; PCP Family Medicine; Visit Provider Obstetrics & Gynecology
DX: O69.2XX0 Labor and delivery complicated by other cord entanglement, with compression, not applicable or unspecified (principal); Z37.0 Single live birth; Z3A.38 38 weeks gestation of pregnancy
CPT/HCPCS: 36415; 85014; 85018; 85025; 86592; 86850; 86900; 86901; A9270; J2405; J2590; J2795; J7120

== ENCOUNTER 2020-05-15 00:41 | Outpatient (CLI) | payer BC, SELFPAY ==
[2020-05-15 18:47] LABS: SARS-CoV-2 RNA PCR Negative
== END 2020-05-15 00:42 | disposition home or self-care (01) ==
LOC: ANHCOVIDDT 00:41
PROVIDERS: PCP Family Medicine; Visit Provider Obstetrics & Gynecology
DX: Z01.812 Encounter for preprocedural laboratory examination (principal); Z20.822 Contact with and (suspected) exposure to COVID-19
CPT/HCPCS: C9803; U0003; U0005

== ENCOUNTER 2020-05-19 02:12 | Day surgery (SDC) | payer BC, SELFPAY ==
[2020-05-07 15:31] VITALS: BMI 29.6
[2020-05-19] VITALS (9 sets, daily range): BP systolic 100–133; BP diastolic 61–85; PULSE 52–83; RESP 10–20; TEMP 36.2–36.6; O2SAT 96–100
[2020-05-19] MEDS: ACETAMINOPHEN 500 MG TABLET 1000 MG PO (06:33)
[2020-05-19] MEDS: LACTATED RINGERS 1,000 ML 30 ML IV CONT (06:45)
[2020-05-19] MEDS: KETOROLAC 15 MG/ML VIAL (*BKC) IV PUSH (06:49)
--- NOTE | 2020-05-19 07:28 | PM.IMHP ---
H&P: HPI History of Present Illness Date/Time: 05/19/20 07:28 Chief Complaint: Desires sterilization. Narrative: Leon Carmona is a 34 year old female with satisfied parity and desire for permanent sterilization. She declines all other non permanent forms of control. Discussed methods of sterilization and risk and benefits and she agrees to bilateral salpingectomy. Review of Systems Review of Systems: All systems reviewed & are unremarkable except as noted in HPI and below Cardiovascular: Cardiovascular: Reports no additional cardiovascular complaints, Denies chest pain and Denies dyspnea Respiratory: Respiratory: Reports no additional respiratory complaints and Denies dyspnea Gastrointestinal: Gastrointestinal: Reports abdominal pain, Denies change in bowel habits, Denies diarrhea, Denies nausea and Denies vomiting Genitourinary: Genitourinary: Reports pelvic pain Musculoskeletal: Musculoskeletal: Reports back pain Integumentary/Breasts: Skin/Breast: Reports system reviewed and no additional complaints, except as docu Neurologic: Reports system reviewed and no additional complaints, except as documented PMFSH Past Medical History Medical History (Updated 05/19/20 @ 07:29 by Ulices Porter MD) Anxiety Asthma Depression Encounter for supervision of normal first , second trimester Vaginal delivery x 3 Family History Family History Father Family history of elevated blood lipids Patient's father is Family history of coronary artery disease Hypertension Acute myocardial infarction Grandparent Family history of malignant neoplasm of bone Diabetes mellitus Depression Acute myocardial infarction Mother Depression Patient's mother is Family history of pancreatic cancer Social History Social History Smoking status: Never smoker Second hand tobacco smoke exposure: No Alcohol intake: never Substance use: never Living arrangements: with family Spiritual care concerns: No Meds Home Medications and Allergies Home Medications Medication Instructions Recorded Confirmed Type cholecalciferol (vitamin D3) 50 50 mcg PO DAILY #90 cap 01/01/20 05/19/20 Rx mcg (2,000 unit) capsule prenat.vits,bert,fgo-qpxo-[id number] 1 tablet PO DAILY 05/19/20 05/19/20 History [ Vitamin] Allergies Allergy/AdvReac Type Severity Reaction Status Date / Time Penicillins Allergy Severe Hives Verified 05/19/20 06:36 Vital Signs Vital Signs - 24 hr 05/19/20 06:11 Temperature 97.1 F L Pulse Rate 83 Respiratory Rate 20 Blood Pressure 133/68 Pulse Oximetry 98 Exam Const: Orientation/consciousness: oriented to person and oriented to place HENMT: Head: normal to inspection Eyes: General: appearance normal, both eyes and all related structures Resp: Effort & Inspection: normal respiratory effort Auscultation: clear to auscultation bilaterally Cardio: Rate: regular rate Rhythm: regular rhythm GI: Inspection: normal to inspection GI Palp: No Rebound tenderness present Neuro: General: oriented to person and oriented to place Cognition (Neuro): normal cognition Extrem: General: normal to inspection Psych: Appearance: grossly normal and well kempt Assessment and Plan Assessment and plan (1) Sterilization: Code(s): Z30.2 - Encounter for sterilization Status: Acute Assessment and Plan: Will perform laparoscopic bilateral salpingectomy.
--- NOTE | 2020-05-19 07:31 | WPDHPUPDATE1 ---
History and Physical Update Update Date/Time: 05/19/20 07:31 History and Physical has been reviewed, including an updated exam of the patient. There are NO changes in the patient's condition. Risks, benefits, and alternatives have been discussed and questions answered. Patient agrees to proceed with procedure.
[2020-05-19] MEDS: BUPIVACAINE HCL 0.5% PF 30 ML VIAL INFILTRATE (08:18)
--- NOTE | 2020-05-19 08:19 | P.OP_ITS ---
Procedure Note - Detailed Date of procedure: 05/19/20 Pre-op diagnosis: Desires Sterilization Post-op diagnosis: same Procedure performed: Laparoscopic bilateral salpingectomy. Description of procedure: After informed consent was obtained patient was taken to the operating room and general endotracheal anesthesia was administered. She was placed in low lithotomy need prep prepped sterile fashion. Attention was turned to the vagina speculum inserted single-tooth tenaculum placed on anterior lip of the cervix. [place] uterine manipulator placed into the cervical canal. The speculum was removed. Attention was then turned to the abdomen. With sterile gloves a horizontal skin incision was made at the umbilicus and a Veress needle was inserted into the abdomen confirmation into the abdomen obtained with free flow of fluid and normal peritoneal pressures. A pneumoperitoneum of 15 mm per mercury was obtained. The 5 mm port was inserted under laparoscopic visualization. Patient was placed in Trendelenburg position. Attention was turned to the left side of the abdomen and a 5 mm port was inserted under laparoscopic visualization. The pelvic organs were visualized. Attention was turned to the right side of the abdomen and another 5 mm port was inserted under laparoscopic visualization. Using the LigaSure the left fallopian tube was excised to near the entrance to interstitial section of the fallopian tube.. This was removed through the port. Attention was then turned to the right fallopian tube which was grabbed at the distal end and cauterized from the mesosalpinx to interstitial section of the fallopian tube. The fallopian tube was removed through the 5 mm port. Hemostasis was noted at both sites. Patient was taken out of Trendelenburg position the pneumoperitoneum was released and the skin incisions were closed in a subcuticular fashion with 4 O Vicryl. 10cc of 1% lidocaine plain injected at the three sites. Dermabond placed at incision sites. Sponge count correct. Patient was extubated in OR and taken to recovery room. Anesthesia: GETA Surgeon: Ulices Porter MD Academic Advisement Director: Mai Pool Estimated blood loss (mL): 5 IV fluids (mL): 500 Urine output (mL): 100 Drains: No Packing: No Pathology: yes (right and left fallopian tube) Complications: No immediate complications Condition: stable Disposition: PACU Findings: Normal appearing right and left fallopian tubes. Normal appearing ovaries and normal appearing uterus. Normal pelvis.
== END 2020-05-19 10:20 | disposition home or self-care (01) ==
PROVIDERS: PCP Family Medicine; Visit Provider Obstetrics & Gynecology
PROC: (CPT 49320; principal; 2020-05-19 07:30)
DX: Z30.2 Encounter for sterilization (principal)
CPT/HCPCS: 58661; 88302; A9270; C9803; J0330; J1100; J1885; J2250; J2405; J2704; J2710; J3010; J7030; J7120; U0003; U0005

== ENCOUNTER 2021-05-26 15:07 | Outpatient (CLI) | payer BC, SELFPAY ==
[2021-05-26 15:28] LABS: Basophils Absolute Auto 0.1 K/mm3 (0.0-0.1); Basophils Percent Auto 0.7 % (0.2-1.2); Eosinophils Absolute Auto 0.2 K/mm3 (0-0.3); Eosinophils Percent Auto 2.4 % (0-4.4); Hematocrit 40.3 % (37.0-47.0); Hemoglobin 13.6 g/dL (12.0-15.0); Immature Granulocyte Absolute 0.03 K/mm3 (0.00-0.031); Immature Granulocyte Percent A 0.3 % (0-0.5); Lymphocytes Absolute Auto 2.73 K/mm3 (0.9-3.2); Lymphocytes Percent Auto 30.2 % (18.3-44.2); Mean Corpuscular HGB Conc 33.7 g/dl (32-36); Mean Corpuscular Hemoglobin 30.5 pg (26-34); Mean Corpuscular Volume 90.4 fl (80-100); Monocytes Absolute Auto 0.7 K/mm3 (0.1-0.6); Monocytes Percent Auto 7.2 % (2.6-8.5); Neutrophils Absolute Auto 5.4 K/mm3 (1.3-6.7); Neutrophils Percent Auto 59.2 % (45.5-73.1); Platelet Count Result 360 k/mm3 (150-375); Red Blood Count 4.46 M/mm3 (4.2-5.4); Red Cell Distribution Width 12.4 % (11.5-14.5)
[2021-05-26 15:42] LABS: Alanine Aminotransferase 16 U/L (4-35); Albumin Level 4.5 g/dL (3.5-5.1); Alkaline Phosphatase 95 U/L (38-126); Anion Gap 11 mmol/L (8-16); Aspartate Amino Transferase 20 U/L (14-36); Bilirubin,Total 0.3 mg/dL (0.2-1.3); Blood Urea Nitrogen 11 mg/dL (7-17); Calcium 9.2 mg/dL (8.4-10.2); Carbon Dioxide 26 mmol/L (22-30); Chloride 103 mmol/L (98-107); Cholesterol 169 mg/dL (0-200); Estimated Glomerular Filt Rate > 60; Glucose 102 mg/dL (65-110); HDL Direct 52 mg/dL; Sodium 140 mmol/L (137-145); Triglycerides 134 mg/dL (<150)
[2021-05-26 15:52] LABS: LDL Cholesterol Direct 88 mg/dL
[2021-05-26 18:59] LABS: Vitamin D 25 Hydroxy 15.8 ng/mL
== END 2021-05-26 15:08 | disposition home or self-care (01) ==
LOC: ANHLAB 15:09
PROVIDERS: PCP Family Medicine; Visit Provider Obstetrics & Gynecology
DX: Z00.00 Encounter for general adult medical examination without abnormal findings (principal)
CPT/HCPCS: 36415; 80053; 80061; 82306; 84443; 85025

== ENCOUNTER 2023-01-31 15:47 | Outpatient (CLI) | payer BC, SELFPAY ==
--- NOTE | ~2023-01-31 | US_ITS ---
EXAMINATION: US thyroid DATE: 01/31/2023 16:25 INDICATION: Nontoxic goiter TECHNIQUE: Multiple ultrasound images of the thyroid were obtained. COMPARISON: None. FINDINGS: The right thyroid lobe measures 5.8 x 1.5 x 1.9 cm. The left thyroid lobe measures 5.3 x 1.5 x 2.0 c m. Thyroid isthmus measures 3 to 4 mm in thickness. No discrete nodules identified. There is normal e chotexture, echogenicity and vascular flow throughout the thyroid gland. IMPRESSION: 1. Normal thyroid ultrasound. Reviewed, dictated and finalized at location A.
== END 2023-01-31 15:48 | disposition home or self-care (01) ==
LOC: ANHIMG 15:48
PROVIDERS: PCP Family Medicine; Visit Provider Registered Nurse
DX: E04.9 Nontoxic goiter, unspecified (principal)
CPT/HCPCS: 76536

== ENCOUNTER 2023-02-01 08:41 | Outpatient (CLI) | payer BC, SELFPAY ==
[2023-02-01 09:02] LABS: Basophils Absolute Auto 0.1 K/mm3 (0.0-0.1); Basophils Percent Auto 0.8 % (0.2-1.2); Eosinophils Absolute Auto 0.3 K/mm3 (0-0.3); Eosinophils Percent Auto 5.1 % (0-4.4); Hematocrit 40.9 % (37.0-47.0); Hemoglobin 13.6 g/dL (12.0-15.0); Immature Granulocyte Absolute 0.01 K/mm3 (0.00-0.031); Immature Granulocyte Percent A 0.2 % (0-0.5); Lymphocytes Percent Auto 28.8 % (18.3-44.2); Mean Corpuscular HGB Conc 33.3 g/dl (32-36); Mean Corpuscular Hemoglobin 30.7 pg (26-34); Mean Corpuscular Volume 92.3 fl (80-100); Mean Platelet Volume 10.1 fl (7.4-10.4); Monocytes Absolute Auto 0.5 K/mm3 (0.1-0.6); Monocytes Percent Auto 8.5 % (2.6-8.5); Neutrophils Absolute Auto 3.6 K/mm3 (1.3-6.7); Neutrophils Percent Auto 56.6 % (45.5-73.1); Platelet Count Result 344 k/mm3 (150-375); Red Blood Count 4.43 M/mm3 (4.2-5.4); White Blood Count 6.3 K/mm3 (4.5-10.0)
[2023-02-01 09:12] LABS: Alanine Aminotransferase 20 U/L (6-35); Albumin Level 4.4 g/dL (3.5-5.1); Alkaline Phosphatase 89 U/L (38-126); Anion Gap 9 mmol/L (8-16); Aspartate Amino Transferase 23 U/L (14-36); Bilirubin,Total 0.8 mg/dL (0.2-1.3); Blood Urea Nitrogen 11 mg/dL (7-17); Calcium 9.2 mg/dL (8.4-10.2); Carbon Dioxide 27 mmol/L (22-30); Chloride 103 mmol/L (98-107); Cholesterol 185 mg/dL (0-200); Estimated Glomerular Filt Rate > 60; Glucose 96 mg/dL (65-110); HDL Direct 50 mg/dL; Sodium 139 mmol/L (137-145); Triglycerides 87 mg/dL (<150)
[2023-02-01 09:24] LABS: LDL Cholesterol Direct 101 mg/dL
[2023-02-01 10:04] LABS: Vitamin D 25 Hydroxy 29.9 ng/mL
== END 2023-02-01 08:42 | disposition home or self-care (01) ==
LOC: ANHLAB 08:43
PROVIDERS: PCP Family Medicine; Visit Provider Registered Nurse
DX: Z00.00 Encounter for general adult medical examination without abnormal findings (principal); Z79.899 Other long term (current) drug therapy
CPT/HCPCS: 36415; 80053; 80061; 82306; 84443; 85025

== ENCOUNTER 2024-08-12 16:29 | Outpatient (CLI) | payer BC, SELFPAY ==
--- NOTE | ~2024-08-12 | XR_ITS ---
Lumbosacral Spine: AP and lateral views Clinical History: Pain Findings: The normal lordotic curve is maintained. The vertebral bodies and posterior elements are i ntact. There is moderate degenerative disc narrowing at L5-S1. The sacroiliac joints are normally ou tlined. Impression: Moderate degenerative disc narrowing at L5-S1. Reviewed, dictated and finalized at [facility]. Impression: Moderate degenerative disc narrowing at L5-S1.
--- NOTE | ~2024-08-12 | XR_ITS ---
HISTORY: S46.912A - Strain of unspecified muscle, fascia and tendo... COMPARISON: None TECHNIQUE: 2 views of the left shoulder were performed FINDINGS: No acute fracture. The glenohumeral and acromioclavicular joint space is maintained The visualized portion of the adjacent left lung is clear. The humeral head is well seated within the glenoid fossa. IMPRESSION: No acute fracture or anterior dislocation. Reviewed, dictated and finalized at location A.
== END 2024-08-12 16:30 | disposition home or self-care (01) ==
LOC: MICIMG 16:33
PROVIDERS: PCP Family Medicine; Visit Provider Nurse Practitioner Adult Health
DX: S46.912A Strain of unspecified muscle, fascia and tendon at shoulder and upper arm level, left arm, initial encounter (principal); X58.XXXA Exposure to other specified factors, initial encounter; M51.379 Other intervertebral disc degeneration, lumbosacral region without mention of lumbar back pain or lower extremity pain
CPT/HCPCS: 72100; 73030